=== PATIENT | female | born 1955 | race African-American/Black ===

== ENCOUNTER 2017-06-12 09:25 | Inpatient (IN) ==
[2017-06-12] MEDS ORDERED: SODIUM CHLORIDE 0.9% 1,000 ML IV STA (09:41)
[2017-06-12 10:22] LABS: Basophils % 0.2 % (0.0-0.8); Hematocrit 39.3 VOL% (35.7-47.0); Hemoglobin 12.9 GM/DL (12.0-16.0); Immature Granulocytes % 1.7 %; Immature Granulocytes Absolute 0.33 #; Lymphocytes # 1.8 10*3/uL (1.4-4.0); Lymphocytes % 9.2 % (21.3-54.2); Mean Corpuscular HGB Conc 32.8 GM/DL (32-36); Mean Corpuscular Hemoglobin 31 PG (27-34); Mean Corpuscular Volume 93.3 FL (87-102); Mean Platelet Volume 9.8 FL (9.6-12.0); Monocytes # 0.3 10*3/uL (0.11-0.8); Monocytes % 1.4 % (1.7-12.7); Neutrophils # 17.5 10*3/uL (1.4-7.4); Neutrophils % 87.5 % (38.7-73.9); Platelet Count 305 T/CUMM (130-400); Red Blood Count 4.21 MC/CUMM (3.8-5.5); Red Cell Distribution Width 15.8 % (9.3-17.3); White Blood Count 19.9 T/CUMM (4-12)
[2017-06-12 10:40] LABS: Apearance,Urine CLOUDY (Clear); Bilirubin,Urine Negative (Negative); Blood, Urine Negative (Negative); Glucose,Urine (UA) Negative (Negative); Hyaline Casts,Urine 1 /LPF (0-3); Ketones,Urine Negative (Negative); Mucus,Urine Occasional /LPF (Occasional); Nitrite,Urine Negative (Negative); Protein,Urine Negative; Squamous Epithelial Cell,Urine Occasional /HPF (0-10); Urine Color Amber (Yellow); Urine Specific Gravity 1.015 (1.001-1.035); Urine Urobilinogen < 2.0 EU/DL (0.2-1.0); WBC,Urine <1 /HPF (0-6)
[2017-06-12 10:45] LABS: Albumin 3.5 G/DL (3.4-5.0); Band Neutrophils 11 % (0-10); Bilirubin,Total 0.9 MG/DL (0.2-1.0); Giant Platelets Few; Hypochromasia Slight; Lymphocytes 12 % (20-55); Osmolality,Calculated 284.3 MOS/KG (273-304); Platelet Estimate Adequate; Potassium 4.2 MMOL/L (3.5-5.1); Segmented Neutrophils 76 % (50-85); Total Cells Counted 100; Total Protein 6.8 G/DL (6.4-8.3)
[2017-06-12] MEDS ORDERED: cefTRIAXone 1,000 MG in SODIUM CHLORIDE 0.9% 100 ML IV STA (10:45)
[2017-06-12] MEDS ORDERED: cefTRIAXone 1,000 MG VIAL ONE (11:06)
[2017-06-12] MEDS ORDERED: ONDANSETRON 4 MG/2 ML VIAL IV PRN (11:55)
[2017-06-12] MEDS ORDERED: INSULIN GLARGINE 100 UNIT/ML SUBCUT PRN (11:59)
[2017-06-12] MEDS: SODIUM CHLORIDE 0.9% 1,000 ML IV SCH ×2 (14:25→21:54)
[2017-06-12] MEDS: cefTRIAXone 1,000 MG in SYRINGE 1 EACH IV SCH (16:13)
[2017-06-12] MEDS: AZITHROMYCIN INJ 500 MG in SODIUM CHLORIDE 0.9% 250 ML IV SCH (16:14)
[2017-06-12] MEDS: ENOXAPARIN 40 MG/0.4 ML SYRINGE SUBCUT SCH (16:17)
[2017-06-12] MEDS: MORPHINE 2 MG/1 ML SYRINGE IV PRN (17:05)
[2017-06-12] MEDS ORDERED: SODIUM CHLORIDE 0.9% 1,000 ML IV ONE (20:00)
[2017-06-12] MEDS: DOCUSATE SODIUM 100 MG CAPSULE PO SCH (20:55)
[2017-06-12] MEDS ORDERED: NOREPINEPHRINE 8 MG in SODIUM CHLORIDE 0.9% 242 ML IV SCH (23:00)
[2017-06-13] MEDS: SODIUM CHLORIDE 0.9% 1,000 ML IV SCH ×3 (05:36→21:50)
[2017-06-13 05:50] LABS: Basophils # 0.1 10*3/uL (0.0-0.2); Basophils % 0.2 % (0.0-0.8); Hematocrit 36.5 VOL% (35.7-47.0); Hemoglobin 12.3 GM/DL (12.0-16.0); Immature Granulocytes % 1.7 %; Immature Granulocytes Absolute 0.41 #; Lymphocytes # 3.7 10*3/uL (1.4-4.0); Lymphocytes % 15.5 % (21.3-54.2); Mean Corpuscular HGB Conc 33.7 GM/DL (32-36); Mean Corpuscular Hemoglobin 31 PG (27-34); Mean Corpuscular Volume 91.3 FL (87-102); Mean Platelet Volume 10.1 FL (9.6-12.0); Monocytes # 0.8 10*3/uL (0.11-0.8); Monocytes % 3.3 % (1.7-12.7); Neutrophils % 79.3 % (38.7-73.9); Platelet Count 247 T/CUMM (130-400); Red Cell Distribution Width 16.5 % (9.3-17.3)
[2017-06-13 06:03] LABS: Calcium 8.5 MG/DL (8.5-10.1); Osmolality,Calculated 295.6 MOS/KG (273-304); Potassium 3.9 MMOL/L (3.5-5.1)
[2017-06-13 06:42] LABS: Band Neutrophils 14 % (0-10); Lymphocytes 14 % (20-55); Myelocytes 1 %; Segmented Neutrophils 70 % (50-85); Total Cells Counted 100
[2017-06-13 06:43] LABS: Acanthocytes 1+; Anisocytosis 1+; Hypochromasia 1+; Platelet Estimate Normal; Target Cells Few
[2017-06-13] MEDS: LORATADINE 10 MG TABLET PO SCH (08:27)
[2017-06-13] MEDS: ASPIRIN EC 81 MG TABLET PO SCH (08:27)
[2017-06-13] MEDS: PANTOPRAZOLE 40 MG TABLET PO SCH (08:27)
[2017-06-13] MEDS: DOCUSATE SODIUM 100 MG CAPSULE PO SCH ×2 (08:27→20:53)
[2017-06-13] MEDS: MORPHINE 2 MG/1 ML SYRINGE IV PRN ×2 (09:26→20:51)
[2017-06-13] MEDS: cefTRIAXone 1,000 MG in SYRINGE 1 EACH IV SCH (13:55)
[2017-06-13] MEDS: ENOXAPARIN 40 MG/0.4 ML SYRINGE SUBCUT SCH (14:05)
[2017-06-13] MEDS: AZITHROMYCIN INJ 500 MG in SODIUM CHLORIDE 0.9% 250 ML IV SCH (14:07)
[2017-06-14] MEDS: SODIUM CHLORIDE 0.9% 1,000 ML IV SCH ×3 (01:16→22:14)
[2017-06-14 06:02] LABS: Basophils % 0.2 % (0.0-0.8); Eosinophils # 0.1 10*3/uL (0.0-0.87); Eosinophils % 0.3 % (0.00-10.9); Hematocrit 34.4 VOL% (35.7-47.0); Hemoglobin 11.7 GM/DL (12.0-16.0); Immature Granulocytes % 1.4 %; Immature Granulocytes Absolute 0.29 #; Lymphocytes # 3.1 10*3/uL (1.4-4.0); Lymphocytes % 15.2 % (21.3-54.2); Mean Corpuscular Hemoglobin 30 PG (27-34); Mean Corpuscular Volume 89.4 FL (87-102); Mean Platelet Volume 10.4 FL (9.6-12.0); Monocytes # 1.4 10*3/uL (0.11-0.8); Monocytes % 6.7 % (1.7-12.7); Neutrophils # 15.3 10*3/uL (1.4-7.4); Neutrophils % 76.2 % (38.7-73.9); Platelet Count 243 T/CUMM (130-400); Red Blood Count 3.85 MC/CUMM (3.8-5.5); Red Cell Distribution Width 16.8 % (9.3-17.3); White Blood Count 20.2 T/CUMM (4-12)
[2017-06-14 06:34] LABS: Band Neutrophils 9 % (0-10); Lymphocytes 20 % (20-55); Platelet Estimate Normal; Segmented Neutrophils 67 % (50-85); Total Cells Counted 100
[2017-06-14] MEDS: ASPIRIN EC 81 MG TABLET PO SCH (09:23)
[2017-06-14] MEDS: DOCUSATE SODIUM 100 MG CAPSULE PO SCH ×2 (09:23→22:14)
[2017-06-14] MEDS: PANTOPRAZOLE 40 MG TABLET PO SCH (09:23)
[2017-06-14] MEDS: LORATADINE 10 MG TABLET PO SCH (09:23)
[2017-06-14] MEDS ORDERED: VANCOMYCIN INJ 1,500 MG in SODIUM CHLORIDE 0.9% 500 ML IV SCH (11:00)
[2017-06-14] MEDS: MORPHINE 2 MG/1 ML SYRINGE IV PRN (11:41)
[2017-06-14] MEDS: ENOXAPARIN 40 MG/0.4 ML SYRINGE SUBCUT SCH (15:03)
[2017-06-14] MEDS: cefTRIAXone 1,000 MG in SYRINGE 1 EACH IV SCH (15:03)
[2017-06-14] MEDS: AZITHROMYCIN INJ 500 MG in SODIUM CHLORIDE 0.9% 250 ML IV SCH (15:04)
[2017-06-14] MEDS: ACETAMINOPHEN 325 MG TABLET PO PRN (15:15)
[2017-06-15] MEDS: MORPHINE 2 MG/1 ML SYRINGE IV PRN ×2 (01:50→14:35)
[2017-06-15 06:49] LABS: Calcium 7.5 MG/DL (8.5-10.1); Osmolality,Calculated 285.7 MOS/KG (273-304); Potassium 3.7 MMOL/L (3.5-5.1)
[2017-06-15] MEDS: SODIUM CHLORIDE 0.9% 1,000 ML IV SCH ×2 (06:58→17:55)
[2017-06-15] MEDS: PANTOPRAZOLE 40 MG TABLET PO SCH (09:07)
[2017-06-15] MEDS: ASPIRIN EC 81 MG TABLET PO SCH (09:07)
[2017-06-15] MEDS: LORATADINE 10 MG TABLET PO SCH (09:07)
[2017-06-15] MEDS: DOCUSATE SODIUM 100 MG CAPSULE PO SCH ×2 (09:07→20:47)
[2017-06-15] MEDS ORDERED: FUROSEMIDE 40 MG/4 ML VIAL IV ONE (13:18)
[2017-06-15] MEDS ORDERED: LEVOFLOXACIN INJ 500 MG in PREMIX 1 EACH IV SCH (13:30)
[2017-06-15] MEDS: ENOXAPARIN 40 MG/0.4 ML SYRINGE SUBCUT SCH (14:35)
[2017-06-15] MEDS: cefTRIAXone 1,000 MG in SYRINGE 1 EACH IV SCH (14:35)
[2017-06-15] MEDS: ACETAMINOPHEN 325 MG TABLET PO PRN (15:55)
[2017-06-15] MEDS ORDERED: KETOROLAC 15 MG/1 ML VIAL IV ONE (22:25)
[2017-06-15] MEDS: ALBUTEROL/IPRATROPIUM 3 ML NEB RESP TX SCH (22:42)
[2017-06-15] MEDS ORDERED: DEXTROSE 5% IV ONE (23:00)
[2017-06-15] MEDS ORDERED: MAGNESIUM SULF IV ONE (23:00)
[2017-06-15] MEDS: methylPREDNISolone SOD SUC 40 MG/1 ML VIAL IV SCH (23:51)
[2017-06-16 06:00] LABS: Basophils % 0.1 % (0.0-0.8); Hematocrit 32.8 VOL% (35.7-47.0); Immature Granulocytes % 0.7 %; Immature Granulocytes Absolute 0.07 #; Lymphocytes # 1.4 10*3/uL (1.4-4.0); Lymphocytes % 13.7 % (21.3-54.2); Mean Corpuscular HGB Conc 33.5 GM/DL (32-36); Mean Corpuscular Hemoglobin 30 PG (27-34); Mean Corpuscular Volume 89.4 FL (87-102); Mean Platelet Volume 10.2 FL (9.6-12.0); Monocytes # 0.5 10*3/uL (0.11-0.8); Monocytes % 4.9 % (1.7-12.7); Neutrophils # 8.2 10*3/uL (1.4-7.4); Neutrophils % 80.6 % (38.7-73.9); Platelet Count 241 T/CUMM (130-400); Red Blood Count 3.67 MC/CUMM (3.8-5.5); White Blood Count 10.1 T/CUMM (4-12)
[2017-06-16 06:23] LABS: Albumin 2.2 G/DL (3.4-5.0); Bilirubin,Total 0.5 MG/DL (0.2-1.0); Calcium 7.9 MG/DL (8.5-10.1); Potassium 3.5 MMOL/L (3.5-5.1); Total Protein 5.7 G/DL (6.4-8.3)
[2017-06-16 06:26] LABS: Giant Platelets Few; Hypochromasia 1+; Lymphocytes 13 % (20-55); Ovalocytes Slight; Platelet Estimate Adequate; Segmented Neutrophils 84 % (50-85); Total Cells Counted 100
[2017-06-16] MEDS: ALBUTEROL/IPRATROPIUM 3 ML NEB RESP TX SCH ×2 (07:28→19:30)
[2017-06-16] MEDS: KETOROLAC 15 MG/1 ML VIAL IV SCH ×3 (07:30→22:52)
[2017-06-16] MEDS: ATENOLOL 25 MG TABLET PO SCH (08:42)
[2017-06-16] MEDS: ASPIRIN EC 81 MG TABLET PO SCH (08:42)
[2017-06-16] MEDS: valACYclovir 500 MG TABLET PO SCH ×2 (08:42→21:53)
[2017-06-16] MEDS: DOCUSATE SODIUM 100 MG CAPSULE PO SCH ×2 (08:42→21:45)
[2017-06-16] MEDS: PANTOPRAZOLE 40 MG TABLET PO SCH (08:42)
[2017-06-16] MEDS: LORATADINE 10 MG TABLET PO SCH (08:42)
[2017-06-16] MEDS ORDERED: POTASSIUM CHLORIDE 20 MEQ TABLET PO ONE (11:17)
[2017-06-16] MEDS: cefTRIAXone 2,000 MG in SYRINGE 1 EACH IV SCH (12:06)
[2017-06-16] MEDS: methylPREDNISolone SOD SUC 40 MG/1 ML VIAL IV SCH ×2 (12:06→22:51)
[2017-06-16] MEDS: ENOXAPARIN 40 MG/0.4 ML SYRINGE SUBCUT SCH (15:12)
[2017-06-16] MEDS: SODIUM CHLORIDE 0.9% 1,000 ML IV SCH (15:12)
[2017-06-17 05:56] LABS: Basophils % 0.1 % (0.0-0.8); Hematocrit 31.4 VOL% (35.7-47.0); Hemoglobin 10.6 GM/DL (12.0-16.0); Immature Granulocytes % 0.8 %; Immature Granulocytes Absolute 0.06 #; Lymphocytes # 1.3 10*3/uL (1.4-4.0); Lymphocytes % 16.8 % (21.3-54.2); Mean Corpuscular HGB Conc 33.8 GM/DL (32-36); Mean Corpuscular Hemoglobin 30 PG (27-34); Mean Corpuscular Volume 88.7 FL (87-102); Mean Platelet Volume 10.3 FL (9.6-12.0); Monocytes # 0.4 10*3/uL (0.11-0.8); Monocytes % 5.6 % (1.7-12.7); Neutrophils # 5.9 10*3/uL (1.4-7.4); Neutrophils % 76.7 % (38.7-73.9); Platelet Count 285 T/CUMM (130-400); Red Blood Count 3.54 MC/CUMM (3.8-5.5); Red Cell Distribution Width 16.1 % (9.3-17.3); White Blood Count 7.7 T/CUMM (4-12)
[2017-06-17] MEDS: KETOROLAC 15 MG/1 ML VIAL IV SCH ×3 (06:09→21:32)
[2017-06-17 06:26] LABS: Calcium 7.9 MG/DL (8.5-10.1); Osmolality,Calculated 291.7 MOS/KG (273-304); Potassium 4.5 MMOL/L (3.5-5.1)
[2017-06-17] MEDS: ALBUTEROL/IPRATROPIUM 3 ML NEB RESP TX SCH ×2 (07:20→19:28)
[2017-06-17] MEDS: ATENOLOL 25 MG TABLET PO SCH (09:05)
[2017-06-17] MEDS: valACYclovir 500 MG TABLET PO SCH ×2 (09:05→20:49)
[2017-06-17] MEDS: DOCUSATE SODIUM 100 MG CAPSULE PO SCH ×2 (09:05→20:49)
[2017-06-17] MEDS: PANTOPRAZOLE 40 MG TABLET PO SCH (09:05)
[2017-06-17] MEDS: LORATADINE 10 MG TABLET PO SCH (09:05)
[2017-06-17] MEDS: ASPIRIN EC 81 MG TABLET PO SCH (09:06)
[2017-06-17] MEDS: methylPREDNISolone SOD SUC 40 MG/1 ML VIAL IV SCH ×3 (09:06→21:30)
[2017-06-17] MEDS: ENOXAPARIN 40 MG/0.4 ML SYRINGE SUBCUT SCH (13:35)
[2017-06-17] MEDS: cefTRIAXone 2,000 MG in SYRINGE 1 EACH IV SCH (13:36)
[2017-06-17] MEDS: SODIUM CHLORIDE 0.9% 1,000 ML IV SCH (18:27)
[2017-06-18] MEDS: SODIUM CHLORIDE 0.9% 1,000 ML IV SCH (00:47)
[2017-06-18] MEDS: KETOROLAC 15 MG/1 ML VIAL IV SCH (05:02)
[2017-06-18 07:40] VITALS: BP 156/95
[2017-06-18] MEDS: ALBUTEROL/IPRATROPIUM 3 ML NEB RESP TX SCH (07:58)
[2017-06-18] MEDS: valACYclovir 500 MG TABLET PO SCH (08:22)
[2017-06-18] MEDS: LORATADINE 10 MG TABLET PO SCH (08:22)
[2017-06-18] MEDS: PANTOPRAZOLE 40 MG TABLET PO SCH (08:22)
[2017-06-18] MEDS: ATENOLOL 25 MG TABLET PO SCH (08:22)
[2017-06-18] MEDS: ASPIRIN EC 81 MG TABLET PO SCH (08:22)
[2017-06-18] MEDS: DOCUSATE SODIUM 100 MG CAPSULE PO SCH (08:22)
[2017-06-18] MEDS: methylPREDNISolone SOD SUC 40 MG/1 ML VIAL IV SCH (11:17)
== END 2017-06-18 12:35 | disposition home or self-care (01) | DRG 871 ==
LOC: N.ED 09:25 → N.EDINP 11:55 → N.5E 14:05 → N.ICU 23:02 → N.5E 06-13 22:32
PROVIDERS: ADMIT Internal Medicine; ATTEND Internal Medicine

== ENCOUNTER 2022-05-26 08:12 | Inpatient (IN) ==
[2022-05-26] MEDS ORDERED: ACETAMINOPHEN 500 MG TABLET PO STA (08:40)
[2022-05-26] MEDS ORDERED: cefTRIAXone 1,000 MG in SODIUM CHLORIDE 0.9% 100 ML IV STA (08:43)
[2022-05-26 09:18] LABS: Basophils % 0.1 % (0.0-0.8); Eosinophils % 0.2 % (0.00-10.9); Hematocrit 46.1 VOL% (35.7-47.0); Hemoglobin 14.2 GM/DL (12.0-16.0); Immature Granulocytes % 1.2 %; Immature Granulocytes Absolute 0.17 #; Lymphocytes % 7.5 % (21.3-54.2); Mean Corpuscular HGB Conc 30.8 GM/DL (32-36); Mean Corpuscular Volume 96.8 FL (87-102); Mean Platelet Volume 10.8 FL (9.6-12.0); Monocytes % 0.1 % (1.7-12.7); Neutrophils % 90.9 % (38.7-73.9); Platelet Count 239 T/CUMM (130-400); Red Blood Count 4.76 MC/CUMM (3.8-5.5); Red Cell Distribution Width 13.8 % (9.3-17.3); White Blood Count 13.66 T/CUMM (4-12)
[2022-05-26 09:34] LABS: Albumin 3.2 G/DL (3.4-5.0); Bilirubin,Total 0.9 MG/DL (0.20-1.00); Osmolality,Calculated 285.1 MOS/KG (273-304); Potassium 3.6 MMOL/L (3.5-5.1); Total Protein 6.4 G/DL (6.4-8.2)
[2022-05-26] MEDS ORDERED: SODIUM CHLORIDE 0.9% 2,600 ML IV ONE (09:39)
[2022-05-26 09:43] LABS: Band Neutrophils 1 % (0-10); Lymphocytes 8 % (20-55); Platelet Estimate Adequate; Total Cells Counted 100
[2022-05-26 09:43] LABS: Amorphous Crystals,Urine Moderate /HPF (Few); Bacteria,Urine Occasional /HPF (Few); Hyaline Casts,Urine 10 /LPF (0-3); Mucus,Urine Few /LPF (Occasional); Squamous Epithelial Cell,Urine Occasional /HPF (0-10); Urine Appearance Clear (Clear); Urine Color Yellow (Yellow)
[2022-05-26 09:44] LABS: Bilirubin,Urine Negative (Negative); Blood, Urine Negative (Negative); Glucose,Urine (UA) Negative (Negative); Ketones,Urine Negative (Negative); Nitrite,Urine Negative (Negative); Protein,Urine 30 mg/dL (Negative); Urine Specific Gravity 1.015 (1.001-1.035); Urine Urobilinogen 0.2 eU/dL (<2.0); Urine pH 5.5 (4.5-8.0)
[2022-05-26 10:00] LABS: PT Patient Result 10.8 SECS (10.1-12.1); Partial Thromboplastin Time 23.6 SECS (23.7-32.9)
[2022-05-26] MEDS ORDERED: ONDANSETRON 4 MG/2 ML VIAL IV PRN (10:20)
[2022-05-26] MEDS ORDERED: ALBUTEROL 2.5 MG/3 ML NEB RESP TX PRN (10:20)
[2022-05-26] MEDS ORDERED: ACETAMINOPHEN 325 MG TABLET PO PRN (10:22)
[2022-05-26] MEDS ORDERED: NON-FORMULARY MEDICATION (Albuterol Sulfate [Proair Hfa] 90 MCG/PUFF HFA aerosol inhaler) INH PRN (10:22)
[2022-05-26] MEDS: LEVOFLOXACIN INJ 750 MG/150 ML PREMIX IV SCH (10:31)
[2022-05-26] MEDS ORDERED: LORATADINE 10 MG TABLET PO PRN (10:36)
[2022-05-26] MEDS: ENOXAPARIN 40 MG/0.4 ML SYRINGE SUBCUT SCH (11:07)
[2022-05-26] MEDS: NOREPINEPHRINE DRIP 8 MG/250 ML PREMIX IV PRN ×2 (11:30→20:56)
[2022-05-26] MEDS: PANTOPRAZOLE 40 MG VIAL IV SCH (11:45)
[2022-05-26] MEDS: LACTATED RINGERS 1,000 ML IV SCH ×2 (12:00→20:56)
[2022-05-26] MEDS ORDERED: ALBUMIN 25% 25 GM/100 ML VIAL IV ONE (16:44)
[2022-05-26] MEDS ORDERED: HYDROCORTISONE 100 MG VIAL IV ONE (16:51)
[2022-05-26] MEDS: VANCOMYCIN INJ 1,000 MG in SODIUM CHLORIDE 0.9% 250 ML IV SCH (18:40)
[2022-05-26] MEDS ORDERED: FUROSEMIDE 40 MG/4 ML VIAL IV ONE (18:52)
[2022-05-26] MEDS: ATORVASTATIN 40 MG TABLET PO SCH (20:40)
[2022-05-26] MEDS: HYDROCORTISONE 100 MG VIAL IV SCH (22:04)
[2022-05-27 00:56] LABS: Basophils # 0.1 10*3/uL (0.0-0.2); Basophils % 0.2 % (0.0-0.8); Hemoglobin 12.8 GM/DL (12.0-16.0); Immature Granulocytes % 7.2 %; Immature Granulocytes Absolute 2.86 #; Lymphocytes # 1.1 10*3/uL (1.4-4.0); Lymphocytes % 2.7 % (21.3-54.2); Mean Corpuscular HGB Conc 32.8 GM/DL (32-36); Mean Corpuscular Volume 93.1 FL (87-102); Mean Platelet Volume 11.2 FL (9.6-12.0); Monocytes # 1.2 10*3/uL (0.11-0.8); Neutrophils % 86.9 % (38.7-73.9); Platelet Count 190 T/CUMM (130-400); Red Blood Count 4.19 MC/CUMM (3.8-5.5); Red Cell Distribution Width 13.9 % (9.3-17.3); White Blood Count 39.81 T/CUMM (4-12)
[2022-05-27 01:23] LABS: ABG Base Excess -1.6 MMOL/L (-2.5-2.5); ABG Oxygen Saturation 96.3 % (95-100); ABG PCO2 30.9 MM HG (35-48); ABG PH 7.449 (7.35-7.45); ABG PO2 77.1 MM HG (80-95); ABG TCO2 18.7 MMOL/L (23-27)
[2022-05-27 01:54] LABS: Potassium 3.5 MMOL/L (3.5-5.1)
[2022-05-27 03:13] LABS: Band Neutrophils 13 % (0-10); Eosinophils 1 % (0-10); Lymphocytes 1 % (20-55); Metamyelocytes 6 %; Myelocytes 1 %; Total Cells Counted 100
[2022-05-27 03:14] LABS: Acanthocytes Few; Hypochromia Slight; Microcytosis Slight; Target Cells Slight
[2022-05-27 03:15] LABS: Platelet Estimate Adequate
[2022-05-27] MEDS: HYDROCORTISONE 100 MG VIAL IV SCH ×3 (06:15→23:02)
[2022-05-27] MEDS ORDERED: CALCIUM GLUCONATE RIDER 2,000 MG/100 ML PREMIX IV ONE ×2 (08:35→14:08)
[2022-05-27] MEDS: ASPIRIN EC 81 MG TABLET PO SCH (09:07)
[2022-05-27] MEDS: cefTRIAXone 2,000 MG in SODIUM CHLORIDE 0.9% 100 ML IV SCH (09:07)
[2022-05-27] MEDS: ENOXAPARIN 40 MG/0.4 ML SYRINGE SUBCUT SCH (11:22)
[2022-05-27] MEDS: PANTOPRAZOLE 40 MG VIAL IV SCH (11:22)
[2022-05-27] MEDS: LACTATED RINGERS 1,000 ML IV SCH (12:00)
[2022-05-27 13:56] LABS: Calcium 8.3 MG/DL (8.5-10.1); Osmolality,Calculated 291.8 MOS/KG (273-304); Potassium 3.8 MMOL/L (3.5-5.1)
[2022-05-27] MEDS ORDERED: MAGNESIUM SULF RIDER 4 GM/100 ML PREMIX IV ONE (14:07)
[2022-05-27] MEDS ORDERED: VANCOMYCIN INJ 1,000 MG in SODIUM CHLORIDE 0.9% 250 ML IV ONE (17:00)
[2022-05-27] MEDS: VANCOMYCIN INJ 1,000 MG in SODIUM CHLORIDE 0.9% 250 ML IV SCH (17:30)
[2022-05-27] MEDS: ATORVASTATIN 40 MG TABLET PO SCH (21:09)
[2022-05-27] MEDS: NOREPINEPHRINE DRIP 8 MG/250 ML PREMIX IV PRN (21:24)
[2022-05-28] MEDS: HYDROCORTISONE 100 MG VIAL IV SCH ×3 (06:10→20:00)
[2022-05-28] MEDS: LACTATED RINGERS 1,000 ML IV SCH (07:13)
[2022-05-28 07:14] LABS: Basophils # 0.1 10*3/uL (0.0-0.2); Basophils % 0.3 % (0.0-0.8); Hematocrit 35.7 VOL% (35.7-47.0); Hemoglobin 11.7 GM/DL (12.0-16.0); Immature Granulocytes % 8.3 %; Immature Granulocytes Absolute 2.77 #; Lymphocytes # 3.3 10*3/uL (1.4-4.0); Lymphocytes % 9.9 % (21.3-54.2); Mean Corpuscular HGB Conc 32.8 GM/DL (32-36); Mean Platelet Volume 11.9 FL (9.6-12.0); Monocytes % 2.9 % (1.7-12.7); NRBC # 0.02 10*3/uL; Neutrophils % 78.6 % (38.7-73.9); Platelet Count 169 T/CUMM (130-400); Red Blood Count 3.88 MC/CUMM (3.8-5.5); Red Cell Distribution Width 14.2 % (9.3-17.3)
[2022-05-28 07:20] LABS: Calcium 8.7 MG/DL (8.5-10.1); Potassium 3.3 MMOL/L (3.5-5.1)
[2022-05-28 07:24] LABS: Band Neutrophils 1 % (0-10); Eosinophils 1 % (0-10); Lymphocytes 10 % (20-55); Total Cells Counted 100
[2022-05-28 07:25] LABS: Platelet Estimate Adequate
[2022-05-28] MEDS ORDERED: FUROSEMIDE 40 MG/4 ML VIAL IV ONE (08:13)
[2022-05-28] MEDS: POTASSIUM CHLORIDE 20 MEQ TABLET PO SCH ×3 (08:51→16:53)
[2022-05-28] MEDS: ASPIRIN EC 81 MG TABLET PO SCH (08:52)
[2022-05-28] MEDS: cefTRIAXone 2,000 MG in SODIUM CHLORIDE 0.9% 100 ML IV SCH (08:52)
[2022-05-28] MEDS: LEVOFLOXACIN INJ 750 MG/150 ML PREMIX IV SCH (09:44)
[2022-05-28] MEDS: PANTOPRAZOLE 40 MG TABLET PO SCH (10:17)
[2022-05-28] MEDS: ENOXAPARIN 40 MG/0.4 ML SYRINGE SUBCUT SCH (10:17)
[2022-05-28] MEDS: VANCOMYCIN INJ 1,000 MG in SODIUM CHLORIDE 0.9% 250 ML IV SCH (16:53)
[2022-05-28] MEDS: ATORVASTATIN 40 MG TABLET PO SCH (20:00)
[2022-05-29 04:33] LABS: Basophils % 0.2 % (0.0-0.8); Eosinophils % 0.1 % (0.00-10.9); Hematocrit 36.1 VOL% (35.7-47.0); Hemoglobin 11.7 GM/DL (12.0-16.0); Immature Granulocytes % 0.9 %; Immature Granulocytes Absolute 0.19 #; Lymphocytes # 4.7 10*3/uL (1.4-4.0); Lymphocytes % 21.3 % (21.3-54.2); Mean Corpuscular HGB Conc 32.4 GM/DL (32-36); Mean Corpuscular Volume 91.4 FL (87-102); Mean Platelet Volume 11.4 FL (9.6-12.0); Monocytes # 1.1 10*3/uL (0.11-0.8); Monocytes % 4.9 % (1.7-12.7); NRBC # 0.05 10*3/uL; Neutrophils % 72.6 % (38.7-73.9); Platelet Count 190 T/CUMM (130-400); Red Blood Count 3.95 MC/CUMM (3.8-5.5); Red Cell Distribution Width 14.2 % (9.3-17.3); White Blood Count 22.03 T/CUMM (4-12)
[2022-05-29 04:59] LABS: Albumin 2.4 G/DL (3.4-5.0); Bilirubin,Total 0.4 MG/DL (0.20-1.00); Calcium 8.1 MG/DL (8.5-10.1); Osmolality,Calculated 288.8 MOS/KG (273-304); Potassium 3.4 MMOL/L (3.5-5.1); Total Protein 5.5 G/DL (6.4-8.2)
[2022-05-29 05:00] LABS: Band Neutrophils 1 % (0-10); Lymphocytes 16 % (20-55); Platelet Estimate Adequate; Total Cells Counted 100
[2022-05-29] MEDS: HYDROCORTISONE 100 MG VIAL IV SCH (08:00)
[2022-05-29] MEDS: ASPIRIN EC 81 MG TABLET PO SCH (08:01)
[2022-05-29] MEDS: FUROSEMIDE 20 MG TABLET PO SCH (08:01)
[2022-05-29] MEDS: PANTOPRAZOLE 40 MG TABLET PO SCH (08:02)
[2022-05-29] MEDS: LEVOFLOXACIN 500 MG TABLET PO SCH (08:02)
[2022-05-29] MEDS: cefTRIAXone 2,000 MG in SODIUM CHLORIDE 0.9% 100 ML IV SCH (08:02)
[2022-05-29] MEDS: HYDROCORTISONE 10 MG TABLET PO SCH ×2 (09:11→21:00)
[2022-05-29] MEDS: VANCOMYCIN INJ 1,000 MG in SODIUM CHLORIDE 0.9% 250 ML IV SCH ×2 (09:30→21:01)
[2022-05-29] MEDS: ENOXAPARIN 40 MG/0.4 ML SYRINGE SUBCUT SCH (10:13)
[2022-05-29] MEDS: ATORVASTATIN 40 MG TABLET PO SCH (21:00)
[2022-05-30 05:52] LABS: Basophils % 0.2 % (0.0-0.8); Eosinophils # 0.1 10*3/uL (0.0-0.87); Eosinophils % 0.7 % (0.00-10.9); Hematocrit 36.2 VOL% (35.7-47.0); Hemoglobin 11.7 GM/DL (12.0-16.0); Immature Granulocytes % 0.5 %; Immature Granulocytes Absolute 0.06 #; Lymphocytes # 5.9 10*3/uL (1.4-4.0); Mean Corpuscular HGB Conc 32.3 GM/DL (32-36); Mean Corpuscular Volume 92.8 FL (87-102); Mean Platelet Volume 11.6 FL (9.6-12.0); Monocytes # 0.9 10*3/uL (0.11-0.8); Monocytes % 7.5 % (1.7-12.7); NRBC # 0.06 10*3/uL; Neutrophils % 44.1 % (38.7-73.9); Platelet Count 194 T/CUMM (130-400); Red Cell Distribution Width 14.2 % (9.3-17.3); White Blood Count 12.46 T/CUMM (4-12)
[2022-05-30 06:20] LABS: Albumin 2.4 G/DL (3.4-5.0); Bilirubin,Total 0.4 MG/DL (0.20-1.00); Calcium 8.2 MG/DL (8.5-10.1); Osmolality,Calculated 290.6 MOS/KG (273-304); Potassium 3.1 MMOL/L (3.5-5.1); Total Protein 5.6 G/DL (6.4-8.2)
[2022-05-30] MEDS ORDERED: POTASSIUM CHLORIDE 20 MEQ TABLET PO ONE (07:39)
[2022-05-30] MEDS: HYDROCORTISONE 10 MG TABLET PO SCH (08:39)
[2022-05-30] MEDS: PANTOPRAZOLE 40 MG TABLET PO SCH (08:39)
[2022-05-30] MEDS: LEVOFLOXACIN 500 MG TABLET PO SCH (08:39)
[2022-05-30] MEDS: cefTRIAXone 2,000 MG in SODIUM CHLORIDE 0.9% 100 ML IV SCH (08:40)
[2022-05-30] MEDS: FUROSEMIDE 20 MG TABLET PO SCH (08:40)
[2022-05-30] MEDS: ASPIRIN EC 81 MG TABLET PO SCH (08:40)
[2022-05-30] MEDS: VANCOMYCIN INJ 1,000 MG in SODIUM CHLORIDE 0.9% 250 ML IV SCH (09:32)
[2022-05-30 11:51] VITALS: BP 135/61
[2022-05-30] MEDS: ENOXAPARIN 40 MG/0.4 ML SYRINGE SUBCUT SCH (13:01)
== END 2022-05-30 14:04 | disposition home or self-care (01) | DRG 872 ==
LOC: N.ED 08:12 → N.EDINP 10:02 → N.CC 10:42 → N.2E 05-29 10:21
PROVIDERS: ADMIT Internal Medicine; ATTEND Internal Medicine